=== PATIENT | male | born 1950 | race Two or more races ===

== ENCOUNTER 2018-02-01 15:50 | Outpatient (CLI) | payer OTHER | END 2018-02-01 16:25 | disposition home or self-care (01) | LOC: RAD 501 15:50 | DX: M54.5 Low back pain (principal); M25.561 Pain in right knee ==

== ENCOUNTER 2021-04-16 09:53 | Outpatient (CLI) | payer OTHER | END 2021-04-16 14:41 | disposition home or self-care (01) | LOC: NUCLEAR 09:53 | DX: R06.02 Shortness of breath (principal); I25.10 Atherosclerotic heart disease of native coronary artery without angina pectoris; Z95.1 Presence of aortocoronary bypass graft ==